=== PATIENT | female | born 1970 | race Caucasian/White ===

== ENCOUNTER 2023-08-26 19:14 | Emergency (ER) | payer SELFPAY ==
[~2023-08-26] VITALS: Ht 167.6 cm; Wt 73.0 kg
[2023-08-26 19:15] VITALS: O2SAT 98
[2023-08-26 19:41] VITALS: TEMP 97.7
[2023-08-26 20:28] LABS: BASOPHILS % 0.8 % (0.0-2.0); CHLORIDE 110 mEq/L (98-107); HEMATOCRIT. 39.8 % (36.0-48.0); HEMOGLOBIN. 13.2 g/dL (12.0-16.0); MEAN CORPUSCULAR HEMOGLOBIN 29.4 pg (28.0-32.0); MEAN CORPUSCULAR HGB CONC 33.2 g/dL (31.0-37.0); MEAN CORPUSCULAR VOLUME 88.8 fL (81.0-99.0); MEAN PLATELET VOLUME 8.1 fl (7.4-10.4); MONOCYTES % 6.4 % (2.0-8.0); NEUTROPHILS % 70.8 % (40.0-76.0); PLATELET 294 x1000/uL (130-400); POTASSIUM 4.1 mEq/L (3.5-5.1); RED BLOOD CELL COUNT 4.48 mill/uL (4.2-5.4); RED CELL DISTRIBUTION WIDTH 14.9 % (11.6-14.6); SODIUM 141 mEq/L (136-145); WHITE BLOOD COUNT 6.8 x1000/uL (4.5-11.0)
[2023-08-26 20:29] LABS: CALCIUM 8.6 mg/dL (8.7-10.4); CARBON DIOXIDE 26 mEq/L (21-32)
[2023-08-26 20:30] LABS: INR 0.9; PROTHROMBIN TIME 10.1 sec (9.6-11.0)
[2023-08-26 20:34] LABS: CREATININE 0.8 mg/dL (0.6-1.0); GLUCOSE 108 mg/dL (70-105); UREA NITROGEN BLOOD 16 mg/dL (9-23)
[2023-08-26 20:36] LABS: TROPONIN I HIGH SENSITIVITY < 4 ng/L (3.0-34)
[2023-08-26 20:37] LABS: HCG SCREEN INDETERMINATE
[2023-08-26] MEDS: SODIUM CHLORIDE 0.9% 1,000 ML IV ONE (21:06)
[2023-08-26 21:55] VITALS: BP 113/51; PULSE 63; RESP 12
== END 2023-08-26 22:14 | disposition home or self-care (01) ==
LOC: ER 19:14
DX: R55 Syncope and collapse (principal); I95.9 Hypotension, unspecified; E78.00 Pure hypercholesterolemia, unspecified; I10 Essential (primary) hypertension
CPT/HCPCS: 99291; 80048; 84703; 85025; 85610; 84484; 36415; 71045; 93005; J7030